=== PATIENT | male | born 1985 | race Caucasian/White ===

== ENCOUNTER 2016-11-27 16:57 | Emergency (ER) | payer OTHER ==
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
[2016-11-27 19:29] VITALS: BP 124/82; PULSE 64; O2SAT 100
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
== END 2016-11-27 19:29 | disposition home or self-care (01) ==
LOC: ED 16:57
DX: S43.401A Unspecified sprain of right shoulder joint, initial encounter (principal); M54.6 Pain in thoracic spine; V86.99XA Unspecified occupant of other special all-terrain or other off-road motor vehicle injured in nontraffic accident, initial encounter
CPT/HCPCS: 71020; 71100; 73030; 99283

== ENCOUNTER 2021-02-10 07:26 | Emergency (ER) | payer OTHER ==
--- NOTE | 2021-02-10 07:37 | ERPHSYRPT ---
- History of Present Illness Time Seen by Provider: 02/10/21 07:35 Historian: patient Physician History: Patient is a 35-year-old male presents to our ED with complaints of a 2-day history of chest pain. Pain described as an ache that is substernal and slightly to the left. Chest pain tends to radiate to his back. Patient experienced some nausea and vomiting. Chest pain worse with exertion. Pain improved with rest. Patient went to a quick care yesterday for nausea and vomiting. He told them that he was experiencing chest pain. Patient was sent home and advised to come to the ED if his chest pain continued. Patient is still experiencing chest discomfort. Pain rated 6 out of 10. No trauma. No fevers. Patient does admit to some diarrhea. Patient is a non-smoker. History of GERD but his pain is different from pain due to GERD. Patient is otherwise healthy. Denies a history of the same. Patient voices no other complaints or concerns at this time. Timing/Duration: day(s) (2 days ago) Activities at Onset: activity Quality: aching Location: substernal Chest Pain Radiation: back Severity of Pain-Max: moderate Severity of Pain-Current: mild Modifying Factors: Improves With: other (Rest and exertion worsens symptoms) Associated Symptoms: nausea, vomiting, No syncope, No edema Prior Chest Pain/Cardiac Workup: no prior chest pain Nitro Today/Relief: no nitro taken today Aspirin Treatment Today: no aspirin today Allergies/Adverse Reactions: No Known Drug Allergies Allergy (Verified 02/10/21 07:39) Home Medications: Famotidine [Pepcid AC] 10 mg DAILY 11/27/16 [History] Hx Tetanus, Diphtheria Vaccination/Date Given: Yes Hx Influenza Vaccination/Date Given: No Hx Pneumococcal Vaccination/Date Given: No - Review of Systems Constitutional: No Symptoms, No Fever, No Chills Eyes: No Symptoms Ears, Nose, & Throat: No Symptoms Respiratory: No Symptoms, No Cough, No Dyspnea Cardiac: No Symptoms, No Chest Pain, No Edema, No Syncope Abdominal/Gastrointestinal: No Symptoms, No Abdominal Pain, No Nausea, No Vomiting, No Diarrhea Genitourinary Symptoms: No Symptoms, No Dysuria Musculoskeletal: No Symptoms, No Back Pain, No Neck Pain Skin: No Symptoms, No Rash Neurological: No Symptoms, No Dizziness, No Focal Weakness, No Sensory Changes Psychological: No Symptoms Endocrine: No Symptoms Hematologic/Lymphatic: No Symptoms Immunological/Allergic: No Symptoms All Other Systems: Reviewed and Negative - Past Medical History Pertinent Past Medical History: No - Past Surgical History Past Surgical History: Yes Other Surgical History: neck surg - Social History Smoking Status: Never smoker Exposure to second hand smoke: No Drug Use: none Patient Lives Alone: No - Nursing Vital Signs Nursing Vital Signs: Initial Vital Signs Temperature 96.8 F 02/10/21 07:28 Pulse Rate 85 02/10/21 07:28 Respiratory Rate 14 02/10/21 07:28 Blood Pressure 153/96 02/10/21 07:28 O2 Sat by Pulse Oximetry 99 02/10/21 07:28 Pain Scale Pain Intensity 0 - Physical Exam General Appearance: no apparent distress, alert Eye Exam: PERRL/EOMI, eyes nml inspection Ears, Nose, Throat Exam: normal ENT inspection, moist mucous membranes Neck Exam: normal inspection, non-tender, supple, full range of motion Respiratory Exam: normal breath sounds, lungs clear, airway intact, No respiratory distress Cardiovascular Exam: regular rate/rhythm, normal heart sounds, normal peripheral pulses Gastrointestinal/Abdomen Exam: soft, No tenderness, No mass Back Exam: normal inspection, No CVA tenderness, No vertebral tenderness Extremity Exam: normal inspection, normal range of motion Neurologic Exam: alert, oriented x 3, cooperative, normal mood/affect, sensation nml, No motor deficits Skin Exam: normal color, warm, dry Lymphatic Exam: No adenopathy SpO2 Interpretation: normal SpO2: 99 O2 Delivery: Room Air - Course Nursing assessment & vital signs reviewed: Yes EKG Interpreted by Me: RATE (77), Sinus Rhythm, NORMAL QRS, Right Bundle Branch Block - CT Exams Chest CT Interpretation: Tele-radiologist Report (Needed for PE. No acute cardiopulmonary abnormalities. Incidental hiatal hernia fatty liver chronic bony findings and old granulomatous disease) Ordered Tests: Active Orders 24 hr Category Date Time Status Jr. Java Developer STAT Care 02/10/21 07:38 Active EKG-ER Only STAT Care 02/10/21 07:37 Active IV Insertion STAT Care 02/10/21 07:37 Active Pulse Oximetry (ED) STAT Care 02/10/21 07:37 Active CHEST WITH CONTRAST [CT] Stat Exams 02/10/21 08:15 Completed CBC W DIFF Stat Lab 02/10/21 07:30 Completed CMP Stat Lab 02/10/21 07:30 Completed D-DIMER QUANTITATIVE Stat Lab 02/10/21 07:30 Completed NT PRO BNP Stat Lab 02/10/21 07:30 Completed TROPONIN Q3H Lab 02/10/21 07:30 Completed TROPONIN Q3H Lab 02/10/21 10:44 Completed TROPONIN Q3H Lab 02/10/21 13:45 Ordered TROPONIN Q3H Lab 02/10/21 16:45 Ordered TROPONIN Q3H Lab 02/10/21 19:45 Ordered UA W/RFX UR CULTURE Stat Lab 02/10/21 10:09 Completed Medication Summary Generic Name Dose Route Start Last Admin Trade Name Freq PRN Reason Stop Dose Admin Sodium Chloride 1,000 mls @ 100 mls/hr 02/10/21 09:00 02/10/21 08:57 Sodium Chloride 0.9% 1000 Ml IV 03/12/21 08:59 100 mls/hr .Q10H JABARI Administration Discontinued Medications Generic Name Dose Route Start Last Admin Trade Name Freq PRN Reason Stop Dose Admin Aspirin 324 mg 02/10/21 07:51 02/10/21 08:08 Aspirin 81 Mg Tab.Chew PO 02/10/21 07:52 324 mg STAT ONE Administration Aspirin Confirm 02/10/21 08:06 Aspirin 81 Mg Tab.Chew Administered 02/10/21 08:07 Dose 324 mg .ROUTE .STK-MED ONE Nitroglycerin 1 gm 02/10/21 07:52 02/10/21 08:08 Nitroglycerin 1 Gm Packet TOP 02/10/21 07:53 1 gm STAT ONE Administration Nitroglycerin Confirm 02/10/21 08:07 Nitroglycerin 1 Gm Packet Administered 02/10/21 08:08 Dose 1 gm .ROUTE .STK-MED ONE Lab/Rad Data: Laboratory Result Diagrams 02/10/21 07:30 02/10/21 07:30 Laboratory Results 02/10/21 02/10/21 02/10/21 Range/Units 10:44 10:09 07:30 WBC (4.0-10.5) K/mm3 RBC (4.1-5.6) M/mm3 Hgb (12.5-18.0) gm/dl Hct (42-50) % MCV (78-100) fl MCH (26-32) pg MCHC (32-36) g/dl RDW (11.5-14.0) % Plt Count (150-450) K/mm3 MPV (7.5-11.0) fl Gran % (36.0-66.0) % Eos # (Auto) (0-0.5) Absolute Lymphs (auto) (1.0-4.6) Absolute Monos (auto) (0.0-1.3) Lymphocytes % (24.0-44.0) % Monocytes % (0.0-12.0) % Eosinophils % (0.00-5.0) % Basophils % (0.0-0.4) % Absolute Granulocytes (1.4-6.9) Basophils # (0-0.4) D-Dimer (215-500) ng/mL Sodium (137-145) mmol/L Potassium (3.5-5.1) mmol/L Chloride (98-107) mmol/L Carbon Dioxide (22-30) mmol/L Anion Gap (5-15) MEQ/L BUN (9-20) mg/dL Creatinine (0.66-1.25) mg/dL Estimated GFR ML/MIN Glucose (74-106) mg/dL Calcium (8.4-10.2) mg/dL Total Bilirubin (0.2-1.3) mg/dL AST (17-59) U/L ALT (0-50) U/L Alkaline Phosphatase (38-126) U/L Troponin I < 0.012 < 0.012 (0.000-0.034) ng/mL NT-Pro-B Natriuret Pep (0-450) pg/mL Serum Total Protein (6.3-8.2) g/dL Albumin (3.5-5.0) g/dL Urine Color YELLOW (YELLOW) Urine Appearance CLEAR (CLEAR) Urine pH 6.0 (5-6) Ur Specific [place] >1.060 (1.005-1.025) Urine Protein NEGATIVE (Negative) Urine Ketones NEGATIVE (NEGATIVE) Urine Blood NEGATIVE (0-5) Mathieu/ul Urine Nitrite NEGATIVE (NEGATIVE) Urine Bilirubin NEGATIVE (NEGATIVE) Urine Urobilinogen NEGATIVE (0-1) mg/dL Ur Leukocyte Esterase NEGATIVE (NEGATIVE) Urine WBC (Auto) 0-2 (0-5) /HPF Urine RBC (Auto) 0-2 (0-2) /HPF U Epithel Cells (Auto) RARE (FEW) /HPF Urine Bacteria (Auto) RARE (NEGATIVE) /HPF Urine Mucus (Auto) SLIGHT (NEGATIVE) /HPF Urine Culture Reflexed NO (NO) Urine Glucose NEGATIVE (NEGATIVE) mg/dL 02/10/21 02/10/21 02/10/21 Range/Units 07:30 07:30 07:30 WBC 11.9 H (4.0-10.5) K/mm3 RBC 5.36 (4.1-5.6) M/mm3 Hgb 16.2 (12.5-18.0) gm/dl Hct 49.6 (42-50) % MCV 92.5 (78-100) fl MCH 30.2 (26-32) pg MCHC 32.7 (32-36) g/dl RDW 12.9 (11.5-14.0) % Plt Count 247 (150-450) K/mm3 MPV 9.9 (7.5-11.0) fl Gran % 74.4 H (36.0-66.0) % Eos # (Auto) 0.40 (0-0.5) Absolute Lymphs (auto) 1.74 (1.0-4.6) Absolute Monos (auto) 0.89 (0.0-1.3) Lymphocytes % 14.6 L (24.0-44.0) % Monocytes % 7.5 (0.0-12.0) % Eosinophils % 3.4 (0.00-5.0) % Basophils % 0.1 (0.0-0.4) % Absolute Granulocytes 8.85 H (1.4-6.9) Basophils # 0.01 (0-0.4) D-Dimer 601 H* (215-500) ng/mL Sodium 141 (137-145) mmol/L Potassium 4.2 (3.5-5.1) mmol/L Chloride 103 (98-107) mmol/L Carbon Dioxide 28 (22-30) mmol/L Anion Gap 14.1 (5-15) MEQ/L BUN 14 (9-20) mg/dL Creatinine 1.02 (0.66-1.25) mg/dL Estimated GFR > 60.0 ML/MIN Glucose 99 (74-106) mg/dL Calcium 9.7 (8.4-10.2) mg/dL Total Bilirubin 0.80 (0.2-1.3) mg/dL AST 29 (17-59) U/L ALT 46 (0-50) U/L Alkaline Phosphatase 91 (38-126) U/L Troponin I (0.000-0.034) ng/mL NT-Pro-B Natriuret Pep < 11.5 (0-450) pg/mL Serum Total Protein 8.0 (6.3-8.2) g/dL Albumin 4.8 (3.5-5.0) g/dL Urine Color (YELLOW) Urine Appearance (CLEAR) Urine pH (5-6) Ur Specific [place] (1.005-1.025) Urine Protein (Negative) Urine Ketones (NEGATIVE) Urine Blood (0-5) Mathieu/ul Urine Nitrite (NEGATIVE) Urine Bilirubin (NEGATIVE) Urine Urobilinogen (0-1) mg/dL Ur Leukocyte Esterase (NEGATIVE) Urine WBC (Auto) (0-5) /HPF Urine RBC (Auto) (0-2) /HPF U Epithel Cells (Auto) (FEW) /HPF Urine Bacteria (Auto) (NEGATIVE) /HPF Urine Mucus (Auto) (NEGATIVE) /HPF Urine Culture Reflexed (NO) Urine Glucose (NEGATIVE) mg/dL - Progress Progress: improved Air Movement: good Progress Note: Case discussed with Dr. Lakhani. Dr. Lakhani does not feel patient requires admission. He advised a treadmill Cardiolite test as an outpatient. Patient should be discharged with nitro and aspirin. Patient to follow-up with Dr. Lakhani after Cardiolite treadmill test completed. 02/10/21 09:52 Patient's Cardiolite stress test is scheduled for February 15, 2021 02/10/21 11:44 Heart score History: 0 EKG 0, (no ST deviation. Right bundle branch block) Age: 1 Risk factors: 0 Troponin: 0 Patient agrees to follow through with his Cardiolite stress test on 15 February. Patient has aspirin at home. He will begin taking 1 aspirin per day. A prescription for nitroglycerin sublingual for the patient's pharmacy. Patient understands instructions. Patient is pain-free. Patient understand that he is not to engage in any strenuous or physical activity due to continuous work-up of his chest pain. Patient voices no other complaints concerns at this time. He agrees to call Dr. Lakhani's office to follow-up with Dr. Lakhani's office to schedule AN appointment for follow-up of his cardiac stress test. Portions of this note were created with voice recognition technology. There may be grammatical, spelling, punctuation or sound alike errors Blood Culture(s) Obtained: No Antibiotics given: No Discussed with : Brisa Will see patient in: office Counseled pt/family regarding: lab results, diagnosis, need for follow-up, rad results - Departure Departure Disposition: Home Clinical Impression: Hiatal hernia, Fatty liver, Old granulomatous disease, Arthritis of spine, Chest pain Condition: Stable Critical Care Time: No Referrals: DOCTOR,NO FAMILY [Primary Care Provider] - Follow up/PCP as directed KARIS LAKHANI MD [ACTIVE STAFF] - Follow up/PCP as directed Additional Instructions: Take one aspirin daily as discussed. Take prescription medication as described Discharge/Care Plan NATALIE MCFADDEN was seen on 02/10/21 in the Emergency Room. The patient was counseled regarding Diagnosis,Lab results, Imaging studies, need for follow up and when to return to the Emergency Room. Prescriptions given: Discharge Note I have spoken with the patient and/or caregivers. I have explained the patient's condition, diagnosis and treatment plan based on the information available to me at this time. I have answered the patient's and/or caregiver's questions and addressed any concerns. The patient and/or caregivers have as good understanding of the patient's diagnosis, condition and treatment plan as can be expected at this point. The vital signs have been stable. The patient's condition is stable and appropriate for discharge from the emergency department. The patient will pursue further outpatient evaluation with the primary care physician or other designated or consulting physician as outlined in the discharge instructions. The patient and/or caregivers are agreeable to this plan of care and follow-up instructions have been explained in detail. The patient and/or caregivers have received these instruction. The patient/and or caregivers are aware that any significant change in condition or worsening of symptoms should prompt an immediate return to this or the closest emergency department or call 911. Prescriptions: Nitroglycerin 0.4 mg Tablet [Nitrostat 0.4 MG Tablet] 0.4 mg SL DAILY 7 Days
[2021-02-10 07:55] LABS: Absolute Neutrophil Ct (ANC) 8.85 (1.4-6.9); BASOPHIL % 0.1 % (0.0-0.4); Basophil (Absolute #) 0.01 (0-0.4); Eosinophil % 3.4 % (0.00-5.0); Hematocrit 49.6 % (42-50); Hemoglobin 16.2 gm/dl (12.5-18.0); Lymphocyte (Absolute #) 1.74 (1.0-4.6); Lymphocytes % 14.6 % (24.0-44.0); Mean Cell Volume 92.5 fl (78-100); Mean Corpuscular Hemoglobin 30.2 pg (26-32); Mean Corpuscular Hgb Concent. 32.7 g/dl (32-36); Mean Platelet Volume 9.9 fl (7.5-11.0); Monocyte (Absolute #) 0.89 (0.0-1.3); Monocytes % 7.5 % (0.0-12.0); Neutrophil % 74.4 % (36.0-66.0); Platelet Count 247 K/mm3 (150-450); Red Blood Count 5.36 M/mm3 (4.1-5.6); Red Cell Distribution Width 12.9 % (11.5-14.0); White Blood Count 11.9 K/mm3 (4.0-10.5)
[2021-02-10] MEDS ORDERED: BABY ASPIRIN 81 MG CHEW ONE (08:06)
[2021-02-10] MEDS ORDERED: NITRO-BID 2% UD PACKETS ONE (08:07)
[2021-02-10] MEDS: BABY ASPIRIN 81 MG CHEW PO ONE (08:08)
[2021-02-10] MEDS: NITRO-BID 2% UD PACKETS TOP ONE (08:08)
[2021-02-10 08:27] LABS: ALBUMIN 4.8 g/dL (3.5-5.0); ALKALINE PHOSPHATASE 91 U/L (38-126); ANION GAP 14.1 MEQ/L (5-15); BLOOD UREA NITROGEN 14 mg/dL (9-20); CHLORIDE 103 mmol/L (98-107); Calcium 9.7 mg/dL (8.4-10.2); Carbon Dioxide 28 mmol/L (22-30); Creatinine 1 1.02 mg/dL (0.66-1.25); EST GLOMERULAR FILTRATION RATE > 60.0 ML/MIN; Glucose 99 mg/dL (74-106); NT PRO BNP < 11.5 pg/mL (0-450); Potassium 4.2 mmol/L (3.5-5.1); SGOT/AST 29 U/L (17-59); SGPT/ALT 46 U/L (0-50); SODIUM 141 mmol/L (137-145)
[2021-02-10] MEDS ORDERED: Sodium Chloride 0.9% 1000 ML 1,000 ML ONE (08:54)
[2021-02-10] MEDS: Sodium Chloride 0.9% 1000 ML 1,000 ML IV SCH (08:57)
--- NOTE | 2021-02-10 09:09 | XRAY ---
Indication: Pulmonary embolus. Multiple contiguous axial images obtained through the chest using 80 cc Isovue 370 contrast and PE protocol. Comparison: None There is adequate opacification of the pulmonary arteries to include the lobar and segmental branches. No pulmonary embolus. Heart not enlarged. Aorta is normal in course and caliber. Small paratracheal calcified node and 9 x 11 mm distal paraesophageal noncalcified node. No pathologic mediastinal/hilar lymphadenopathy. Small hiatal hernia. Lungs demonstrate minimal bilateral dependent atelectasis, minimal left base fibrosis/scarring, and tiny left base calcified granuloma. No suspicious pulmonary mass, infiltrate, or effusion. Bony thorax intact with minimal degenerative changes throughout the spine. Limited upper abdomen demonstrates fatty liver. Impression: 1. Negative pulmonary embolus. No acute cardiopulmonary abnormalities. 2. Incidental hiatal hernia, fatty liver, chronic bony findings, and old granulomatous disease.
[2021-02-10 10:16] LABS: Appearance CLEAR (CLEAR); Bilirubin NEGATIVE (NEGATIVE); Blood NEGATIVE Ery/ul (0-5); Glucose NEGATIVE (NEGATIVE); Ketones NEGATIVE (NEGATIVE); Leukocyte Esterase NEGATIVE (NEGATIVE); Mucus SLIGHT /HPF (NEGATIVE); Nitrite NEGATIVE (NEGATIVE); Protein,Urine Dip NEGATIVE (Negative); RBC 0-2 /HPF (0-2); Specific Gravity >1.060 (1.005-1.025); Urobilinogen NEGATIVE mg/dL (0-1)
[2021-02-10 10:22] LABS: Bacteria RARE /HPF (NEGATIVE); Epithelial Cells RARE /HPF (FEW); WBC 0-2 /HPF (0-5)
[2021-02-10 11:30] VITALS: BP 128/77; PULSE 76
[2021-02-10 11:53] VITALS: O2SAT 99
== END 2021-02-10 11:59 | disposition home or self-care (01) ==
LOC: ED 07:26
DX: R07.9 Chest pain, unspecified (principal); K44.9 Diaphragmatic hernia without obstruction or gangrene; K76.0 Fatty (change of) liver, not elsewhere classified; D71 Functional disorders of polymorphonuclear neutrophils; M47.9 Spondylosis, unspecified; R11.2 Nausea with vomiting, unspecified; R19.7 Diarrhea, unspecified
CPT/HCPCS: 36000; 36415; 71260; 80053; 81001; 83880; 84484; 85025; 85379; 93005; 93041; 94760; 99284; A9270-GY